=== PATIENT | female | born 1960 | race Caucasian/White ===

== ENCOUNTER 2016-06-07 11:12 | Inpatient (IN) | payer OTHER ==
[2016-06-06] MEDS: CLONAZEPAM 0.5 MG TABLET PO PRN (22:35)
[2016-06-07] MEDS ORDERED: ALBUTEROL/IPRATROPIUM 2.5/0.5 MG 3 ML/EACH DOSE ONE (11:53)
[2016-06-07] MEDS ORDERED: FENTANYL 100 MCG/2 ML VIAL ONE (11:55)
[2016-06-07 12:03] LABS: ABSOLUTE NEUTROPHIL COUNT 10.1 K/mm3 (1.8-7.7); BASO # 0.1 K/mm3 (0.0-0.2); BASO % 0.6 % (0.2-1.0); EOS % 0.1 % (0.9-2.9); HEMATOCRIT 35.9 % (37.0-47.0); HEMOGLOBIN 11.6 gm/l (12.0-16.0); IMM NEUT # 0.3 K/mm3 (0-0.2); IMM NEUT% 2.1 % (0-1); LYMPH # 1.7 (1.0-4.8); LYMPH % 12.7 % (15-45); MEAN CELL VOLUME 94.5 fl (81.0-99.0); MEAN CORPUSCULAR HEMOGLOBIN 30.5 pg (27.0-31.0); MEAN CORPUSCULAR HGB CONC 32.3 g/dl (33.0-37.0); MEAN PLATELET VOLUME 9.5 fl (7.4-10.4); MONO # 1.5 (0.0-0.8); MONO % 10.8 % (4-12); NEUT % 73.7 % (43-75); PLATELET COUNT 278 K/mm3 (130-400); RED CELL DISTRIBUTION WIDTH 12.7 % (11.5-14.5)
[2016-06-07 12:15] LABS: ALB/GLOB RATIO 1.1 (>1.0); ALBUMIN 3.9 gm/dL (3.5-5.7); CALCIUM 9.6 mg/dL (8.6-10.3)
--- NOTE | 2016-06-07 12:28 | RAD ---
ANKLE-LEFT 3 VIEW History: Ankle pain after fall. Comparison: None. Findings: Views of the left ankle were obtained. There is evidence of a displaced oblique fracture of the distal left fibular metaphysis. Numerous ossific fragments are evident medial to the talus likely additional fracture fragments. There is significant disruption of the mortise joint with marked widening of the medial portion. The talar dome contour appears to be within expected. Anterior and posterior calcaneal enthesophytes are identified. Irregularity of the base of the fifth metatarsal may reflect residua of a chronic fracture. Impression: 1. A displaced oblique distal left fibular metaphyseal fracture. 2. Multiple ossific fracture fragments along the medial margin of the talus, likely additional fracture fragments as arising from the medial malleolus or possibly the talus itself. 3. Marked widening of the medial portion of the mortise joint. 4. Irregularity of the base of the fifth metatarsal which may reflect healing at the site of a remote fifth metatarsal fracture. 5. Anterior and posterior calcaneal spurs.
--- NOTE | 2016-06-07 12:29 | RAD ---
KNEE- RIGHT 4 OR MORE VIEWS HISTORY: Knee pain. COMPARISONS: None. FINDINGS: Multiple views of the right knee were performed demonstrating grossly intact osseous structures. There is beaking of the tibial spines with patellofemoral and medial compartment joint space loss with associated osteophyte formation. No lytic or blastic lesions are seen. No evidence of a significant knee joint effusion is identified. IMPRESSION: 1. No definitive fracture visualized. 2. Tricompartmental osteoarthritic changes with patellofemoral and medial compartment joint space loss.
--- NOTE | 2016-06-07 12:30 | RAD ---
CHEST-AP BEDSIDE HISTORY: Dyspnea. COMPARISONS: None. FINDINGS: A single AP view of the chest was performed demonstrating normal-appearing soft tissue and bony structures. The heart size is normal for technique. No gross infiltrate, effusion or pneumothorax is seen. The hilar and mediastinal structures are intact. IMPRESSION: 1. No active intrathoracic process.
[2016-06-07] MEDS ORDERED: CEFTRIAXONE 1 GRAM DUPLEX 50 ML IV ONE (14:07)
[2016-06-07] MEDS ORDERED: AZITHROMYCIN 500 MG VIAL ONE (14:07)
[2016-06-07] MEDS ORDERED: SODIUM CHLORIDE 0.9% 250 ML IV ONE (14:09)
[2016-06-07 15:33] VITALS: BMI 40.6
[2016-06-07] MEDS ORDERED: BISACODYL 10 MG SUP PR PRN (15:37)
[2016-06-07] MEDS ORDERED: BISACODYL 5 MG TABLET.EC PO PRN (15:37)
[2016-06-07] MEDS ORDERED: MAGNESIUM HYDROXIDE 30 ML UDCUP PO PRN (15:37)
[2016-06-07] MEDS ORDERED: SODIUM CHLORIDE 0.9% 100 ML IV PRN (15:37)
[2016-06-07] MEDS ORDERED: BLISTEX LIPSTICK 1 EACH TP PRN (15:37)
[2016-06-07] MEDS ORDERED: MENTHOL/CETYLPYRD 1 EACH LOZENGE PO PRN (15:37)
[2016-06-07] MEDS ORDERED: SODIUM CHLORIDE 0.9% 1,000 ML IV SCH (15:45)
[2016-06-07] MEDS: ENOXAPARIN SODIUM 40 MG/0.4 ML SYRINGE SUB-Q SCH (16:05)
[2016-06-07] MEDS: METHYLPRED SOD SUCCINATE 125 MG VIAL IV SCH ×2 (16:33→23:21)
[2016-06-07] MEDS: ALBUTEROL/IPRATROPIUM 2.5/0.5 MG 3 ML/EACH DOSE NEB SCH ×2 (16:51→20:26)
[2016-06-07] MEDS: METFORMIN HCL 1,000 MG TABLET PO SCH (17:23)
[2016-06-07] MEDS: IBUPROFEN 600 MG TABLET PO PRN (17:23)
[2016-06-07] MEDS: CYCLOBENZAPRINE HCL 10 MG TABLET PO PRN (17:23)
[2016-06-07] MEDS: ACETAMINOPHEN 325 MG TABLET PO PRN (17:24)
[2016-06-07] MEDS: TRAMADOL HCL 50 MG TABLET PO PRN (17:24)
[2016-06-07] MEDS ORDERED: LIDOCAINE 1% (PRES FREE) 30 ML VIAL SUB-Q ONE (17:42)
[2016-06-07] MEDS ORDERED: HYDROMORPHONE HCL 1 MG/ML SYRINGE IV ONE (17:47)
--- NOTE | 2016-06-07 18:51 | RAD ---
ANKLE LIMITED LEFT 1-2 VIEWS HISTORY: Ankle fracture status post cast placement. COMPARISONS: Examination of the same day. FINDINGS: 2 views of the left ankle were obtained within overlying cast material demonstrating the oblique fracture of the distal fibular metaphysis. The alignment is improved from the appearance on prior examination. There appears to be medial tilt of the distal tibial plafond though the widened mortise joint is seen on prior examination is less conspicuous. Detail is however obscured by the overlying cast material. IMPRESSION: 1. An oblique distal fibular metaphyseal fracture with improved alignment when compared to the previous examination. 2. Suggested medial tilt of the distal tibial plafond and though the significant widening of the mortise joint evident on prior examination is less conspicuous. 3. Detail obscured by the overlying cast material.
[2016-06-07] MEDS ORDERED: SEROQUEL 150 MG PO SCH (21:00)
[2016-06-07] MEDS: LEVOTHYROXINE SODIUM 75 MCG TABLET PO SCH (21:48)
[2016-06-07] MEDS: LAMOTRIGINE 100 MG PO SCH (23:17)
[2016-06-07] MEDS: PROPRANOLOL 60 MG PO SCH (23:19)
[2016-06-07] MEDS: FLUOXETINE HCL 20 MG CAPSULE PO SCH (23:20)
[2016-06-07] MEDS: DOCUSATE SODIUM 100 MG CAPSULE PO SCH (23:22)
[2016-06-07 23:23] LABS: ARTERIAL BLOOD GAS pH 7.241 (7.350-7.450)
[2016-06-07] MEDS: ATORVASTATIN CALCIUM 10 MG TABLET PO SCH (23:23)
[2016-06-07 23:24] LABS: ARTERIAL BLOOD GAS BASE EXCESS 1.2 mmol/L (-2.0-2.0); ARTERIAL BLOOD GAS PCO2 71.5 mmHg (35.0-45.0); ARTERIAL BLOOD GAS PO2 54.8 mmHg (80.0-90.0)
[2016-06-07 23:45] LABS: ARTERIAL BLOOD GAS PCO2 56.8 mmHg (35.0-45.0); ARTERIAL BLOOD GAS PO2 69.7 mmHg (80.0-90.0); ARTERIAL BLOOD GAS pH 7.285 (7.350-7.450)
[2016-06-07 23:46] LABS: ARTERIAL BLOOD GAS HCO3 26.4 mmol/L (22.0-28.0)
[2016-06-08] MEDS: METHYLPRED SOD SUCCINATE 125 MG VIAL IV SCH ×4 (03:28→21:17)
[2016-06-08 06:28] LABS: ABSOLUTE NEUTROPHIL COUNT 10.7 K/mm3 (1.8-7.7); BASO # 0.1 K/mm3 (0.0-0.2); BASO % 0.6 % (0.2-1.0); HEMATOCRIT 34.5 % (37.0-47.0); HEMOGLOBIN 10.9 gm/l (12.0-16.0); IMM NEUT # 0.7 K/mm3 (0-0.2); IMM NEUT% 5.1 % (0-1); LYMPH # 1.5 (1.0-4.8); LYMPH % 10.5 % (15-45); MEAN CELL VOLUME 94.3 fl (81.0-99.0); MEAN CORPUSCULAR HEMOGLOBIN 29.8 pg (27.0-31.0); MEAN CORPUSCULAR HGB CONC 31.6 g/dl (33.0-37.0); MEAN PLATELET VOLUME 9.2 fl (7.4-10.4); MONO % 6.8 % (4-12); PLATELET COUNT 276 K/mm3 (130-400); RED CELL DISTRIBUTION WIDTH 12.6 % (11.5-14.5)
[2016-06-08 06:50] LABS: CALCIUM 9.5 mg/dL (8.6-10.3)
[2016-06-08] MEDS: ALBUTEROL/IPRATROPIUM 2.5/0.5 MG 3 ML/EACH DOSE NEB SCH ×4 (08:05→21:04)
[2016-06-08] MEDS: CLONAZEPAM 0.5 MG TABLET PO PRN ×3 (08:44→23:55)
[2016-06-08] MEDS: METFORMIN HCL 1,000 MG TABLET PO SCH ×2 (08:44→21:00)
[2016-06-08] MEDS: DOCUSATE SODIUM 100 MG CAPSULE PO SCH ×2 (08:44→21:12)
--- NOTE | 2016-06-08 08:49 | HP ---
AIME BLAKE [id number] DATE OF ADMISSION: June 07, 2016 CHIEF COMPLAINT: Left ankle pain and shortness of breath. HISTORY OF PRESENT ILLNESS: The patient is a 55-year-old female with a history of asthma and glucose intolerance who presents to the [facility] Emergency Department after a ground level fall occurred at home with left ankle pain, right knee pain and shortness of breath symptoms. She reports that she began having a sore throat last week on Wednesday, followed shortly after by cough and post nasal drip. She began having shortness of breath symptoms last Wednesday which has slowly progressed. She collapsed in her living room yesterday and then this happened again today on the way to urgent care, and she sustained injury to her ankle. She was found to have oxygen saturations as low as 71% on room air in the emergency department. She reports her cough is productive. She has had some wheezing reportedly as well. She complains of sinus congestion. REVIEW OF SYSTEMS: Review of systems is negative for any documented fever. As I mentioned, she does have a sensation of plugged ears, sinus congestion and sore throat. She has had a cough occasionally productive with some wheezing and dyspnea. She has had no orthopnea or lower extremity edema. She has some chronic gastroesophageal reflux symptoms with burning epigastric and chest pain worse at night which have not changed. She has had no appetite. She has had no nausea or vomiting, no diarrhea or constipation. No focal abdominal pain. She has chronic back pain and arthralgias due to osteoarthritis. She denies any headaches or seizures. No urinary complaints. She thinks she might have blacked out this morning when she fell. Review of systems is otherwise negative. PAST MEDICAL HISTORY: 1. Negative for any recent hospitalizations 2. She does have a history of glucose intolerance. 3. Hypothyroidism. 4. Morbid obesity. 5. Chronic asthma with chronic asthmatic bronchitis. 6. Hyperlipidemia. 7. Bipolar disorder. 8. She has had several psychiatric hospitalizations. PAST SURGICAL HISTORY: Significant for: 1. Appendectomy. 2. Tonsillectomy. 3. Bilateral carpal tunnel surgeries. 4. She has had a previous rhinoplasty. 5. Open reduction internal fixation of a right middle finger. ALLERGIES: NO KNOWN DRUG ALLERGIES. CURRENT MEDICATIONS: Prescribed by Aiden and Rupesh. I am awaiting a list from them. Preliminary medication list includes: 1. Vistaril 25 mg every six hours as needed for anxiety. 2. Levothyroxine 75 mcg orally daily. 3. Flexeril 10 mg up to three times daily as needed for back pain. 4. Propranolol 20 mg daily. 5. Metformin 1000 mg twice daily. 6. Seroquel 800 mg at bedtime. 7. Prozac 40 mg at bedtime. 8. Albuterol metered dose inhaler as needed. 9. The list is incomplete and has not been confirmed. FAMILY HISTORY: Significant for a mother who had cervical cancer and father who had colon cancer and coronary artery disease. She has had several aunts who have had diabetes. 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 She is a former smoker of about 50 pack-years and quit in 2010. She rarely drinks alcohol. She is and has no children. Her primary care provider is Dr. Narayan Isaacs. PHYSICAL EXAMINATION: VITAL SIGNS: Temperature is 98.7, pulse 81, blood pressure 115/66, respirations 20, oxygen saturation currently 95% on five liters by nasal cannula. Body mass index is 40.7 with a weight of 114 kilograms. GENERAL: This is an obese female in no acute distress. HEENT: Shows sinus congestion with some yellow drainage. Tympanic membranes are clear bilaterally. Oropharynx shows moist, pink oral mucosa. NECK: Is supple without lymphadenopathy or thyromegaly. CHEST: Lungs reveal diminished breath sounds throughout both lung church with decreased air flow. CARDIOVASCULAR: Exam reveals a regular rate and rhythm without a murmur. ABDOMEN: Obese, soft, nontender, nondistended with positive bowel sounds. EXTREMITIES: Show no peripheral angiography. Left leg is placed in a posterior leg splint. Capillary refill of the toes is less than 2 seconds. Sensation appears to be intact. NEUROLOGIC: Exam is nonfocal. DIAGNOSTIC IMAGING STUDIES: 1. X-ray of the left ankle which shows a displaced, oblique, distal left fibular metaphyseal fracture. Also some ossific fracture fragments along the medial margin of the talus either arising from the talus or the medial malleolus. Marked widening of the medial portion of the mortise joint is noted and there is some irregularity at the base of the 5th metatarsal which may reflect an old fracture. 2. Chest x-ray was felt to be unremarkable. 3. Right knee x-ray there were some osteoarthritic changes seen. LABORATORY STUDIES: Consisted of a CBC with a white count elevated at 13.6, hemoglobin 11.6 and a platelet count of 278,000. Differential shows 73% neutrophils, 12% lymphocytes. Chemistry profile shows sodium 133, potassium 4.2, chloride 96, carbon dioxide 29, BUN 12, creatinine 1.2, glucose 148, total bilirubin was 0.7, AST was elevated at 83, ALT was elevated at 143. Alkaline phosphatase was elevated at 339. Troponin I was 0.02. B-type natriuretic peptide was 218. Lipase was 13. ASSESSMENT: 1. Patient has acute hypoxic respiratory failure suspect this is an asthma exacerbation. We will get peak flow measurements to better document this. She has suspected pneumonia as well and has been started on Rocephin and Zithromax. 2. She has a history of glucose intolerance with complications. 3. Her care is complicated by morbid obesity. 4. She has chronic hypothyroidism. 5. She also has a left ankle fracture which may require surgical treatment. 6. History of bipolar disorder on multiple medications. PLAN: 1. Plan is for admission to the medical/surgical unit. 2. Orthopedic consultation with Dr. Gonzalez has already been performed. 3. She will be treated with Rocephin, Zithromax, and albuterol as needed. 4. I am going to go ahead and add solumedrol as well to her regimen because I suspect asthma may be playing a role. 5. She also may have some underlying sinusitis which could be triggering her asthma. 6. She will resume her usual psychiatric medications once these can be confirmed. If her Seroquel dose is indeed that high, I am going to go ahead and get a 12 lead electrocardiogram just to establish that she has no QT prolongation. 7. Venous thromboembolism risk is moderate. Lovenox has been prescribed for prophylaxis. 8. Cultures of the blood were not obtained prior to treatment. 9. Further treatment and recommendations will depend on her hospital course. cc: Narayan Isaacs M.D. [facility] in [place]
[2016-06-08] MEDS: ETODOLAC 200 MG PO SCH ×3 (10:26→17:44)
[2016-06-08] MEDS ORDERED: INSULIN ASPART (DOSE) 100 UNITS/1 ML SUB-Q PRN (11:37)
--- NOTE | 2016-06-08 11:39 | PDOC43 ---
- Subjective Chief Complaint: shortness of breath and left ankle pain Subjective: Reports Pain Tolerable, Reports Tolerating Diet Well, Reports Shortness of Breath (improving), Reports Other (patient had episode of hypercapneid resp failure yesterday transported to [facility] and improved with Bipap) - Objective Vital Signs Temperature 98.1 F 06/08/16 10:32 Pulse Rate 82 06/08/16 10:32 Respiratory Rate 23 06/08/16 10:45 Blood Pressure 166/66 06/08/16 10:32 O2 Saturation by Pulse Oximetry 91 06/08/16 10:32 Oxygen Delivery Method Nasal Cannula Oxygen Flow Rate 2 Intake and Output 06/07/16 06/08/16 06/09/16 06:59 06:59 06:59 Intake Total 700 1036 Output Total 701 725 Balance -1 311 General: Alert, Oriented x3, Cooperative, Mild Distress HEENT: Mucous membr. moist/pink Lungs: Other (diminished throughout) Cardiovascular: Regular Rate and Rhythm Abdomen: Soft, Normal Bowel Sounds, Non-Distended, No Tenderness Extremities: No Edema Laboratory 06/08/16 06:15 06/08/16 06:15 06/08/16 06/07/16 06/07/16 06:15 23:35 21:35 RBC 3.66 L MCHC 31.6 L pCO2 56.8 H 71.5 H* pO2 69.7 L 54.8 L ABG pH 7.285 L 7.241 L ABG HCO3 30.0 H ABG O2 Saturation 93.2 L 85.3 L Estimated GFR 57 L POC Capillary Glucose % Immature Granulocyt 5.1 H 06/07/16 21:34 RBC MCHC pCO2 pO2 ABG pH ABG HCO3 ABG O2 Saturation Estimated GFR POC Capillary Glucose 166 H % Immature Granulocyt Current Medications: Current meds reviewed in EMR. - Problems: Assessment/Plan (1) Asthma dependent on systemic steroids with acute exacerbation Status: AcuteAssessment/Plan: with peak flow readings under 150, suspect either acute bacterial bronchitis versus acute bacterial sinusitis is triggering the exacerbation, improving on solu-medrol, rocephin and zithromax - repeat CXR in am, switch to PO prednisone in am (2) Respiratory failure with hypoxia and hypercapnia Qualifiers: Chronicity: acute Qualifier Code: (J96.01) Acute respiratory failure with hypoxia Status: AcuteAssessment/Plan: H/O suspected chronic sleep apnea with chronic resp failure, would likely benefit from outpatient sleep study and care home CPAP, responded well to bipap overnight, - will keep in IMCU for bipap tonight PRN (3) Glucose intolerance (impaired glucose tolerance) Status: AcuteAssessment/Plan: mild hyperglycemia, likely due to steroids - cont metformin and novolog (4) Morbid obesity with BMI of 40.0-44.9, adult Status: AcuteAssessment/Plan: complicates care (5) Bipolar 2 disorder Status: AcuteAssessment/Plan: stable on usual meds (6) Ankle fracture, left Qualifiers: Encounter type: initial encounter Fracture type: closed Qualifier Code: (S82.892A) Other fracture of left lower leg, initial encounter for closed fracture Status: AcuteAssessment/Plan: reduced by Dr Gonzalez, in cast - needs outpatient follow up and PT/OT (7) Hypothyroidism (acquired) Status: AcuteAssessment/Plan: on chronic replacement VTE Prophylaxis: [facility] measures Disposition: home in 1-3 days as weaned off oxygen
[2016-06-08] MEDS: CEFTRIAXONE 1 GRAM DUPLEX 1 G in Premix (D5W) 50 ml 1 EACH IV SCH (14:55)
[2016-06-08] MEDS ORDERED: PUMP TUBING ONE (14:56)
[2016-06-08] MEDS: ENOXAPARIN SODIUM 40 MG/0.4 ML SYRINGE SUB-Q SCH (15:04)
[2016-06-08] MEDS: AZITHROMYCIN 500 MG in SODIUM CHLORIDE 0.9% 250 ML IV SCH (16:05)
[2016-06-08] MEDS ORDERED: QUETIAPINE FUMARATE 25 MG TABLET PO ONE (17:30)
[2016-06-08] MEDS ORDERED: QUETIAPINE FUMARATE 50 MG TABLET PO ONE (17:30)
[2016-06-08] MEDS ORDERED: EtCO2 Monitoring Set ONE (18:50)
[2016-06-08] MEDS: FLUOXETINE HCL 20 MG CAPSULE PO SCH (21:10)
[2016-06-08] MEDS: LEVOTHYROXINE SODIUM 75 MCG TABLET PO SCH (21:11)
[2016-06-08] MEDS: PROPRANOLOL 60 MG PO SCH (21:11)
[2016-06-08] MEDS: QUETIAPINE FUMARATE 400 MG PO SCH (21:12)
[2016-06-08] MEDS: LAMOTRIGINE 100 MG PO SCH (21:13)
[2016-06-08] MEDS: ATORVASTATIN CALCIUM 10 MG TABLET PO SCH (21:15)
[2016-06-09] MEDS: METHYLPRED SOD SUCCINATE 125 MG VIAL IV SCH (03:42)
[2016-06-09 07:01] LABS: ABSOLUTE NEUTROPHIL COUNT 12.8 K/mm3 (1.8-7.7); BASO % 0.1 % (0.2-1.0); HEMATOCRIT 34.3 % (37.0-47.0); IMM NEUT # 1.8 K/mm3 (0-0.2); LYMPH # 1.8 (1.0-4.8); LYMPH % 10.4 % (15-45); MEAN CELL VOLUME 94.2 fl (81.0-99.0); MEAN CORPUSCULAR HEMOGLOBIN 30.2 pg (27.0-31.0); MEAN CORPUSCULAR HGB CONC 32.1 g/dl (33.0-37.0); MONO # 1.3 (0.0-0.8); MONO % 7.1 % (4-12); NEUT % 72.4 % (43-75); PLATELET COUNT 299 K/mm3 (130-400); RED CELL DISTRIBUTION WIDTH 12.4 % (11.5-14.5)
[2016-06-09 07:36] LABS: ALB/GLOB RATIO 1.1 (>1.0); ALBUMIN 3.7 gm/dL (3.5-5.7); CALCIUM 9.5 mg/dL (8.6-10.3)
[2016-06-09 07:42] LABS: BAND 5 % (0-10); BASOPHIL 0 % (0-1); EOSINOPHIL 0 % (1-3); LYMPHOCYTE 14 % (15-45); MONOCYTE 17 % (4-12); NEUTROPHILS 64 % (43-75); PLATELET ESTIMATE NORMAL (NORMAL); TOTAL CELLS COUNTED 100
--- NOTE | 2016-06-09 07:51 | RAD ---
EXAMINATION : CHEST-AP BEDSIDE HISTORY: Low O2 saturation. COMPARISONS: Prior exam dated 06/07/2016. FINDINGS: The cardiomediastinal silhouette is within normal limits. There is mild bibasilar atelectasis. Linear basilar opacities are noted and have developed in the interim. No gross effusion is identified. The osseous structures are within normal limits. IMPRESSION: Low lung volumes with mild bibasilar atelectasis. No acute consolidation or effusion is identified.
[2016-06-09] MEDS: ALBUTEROL/IPRATROPIUM 2.5/0.5 MG 3 ML/EACH DOSE NEB SCH ×4 (08:22→20:45)
[2016-06-09] MEDS: METFORMIN HCL 1,000 MG TABLET PO SCH ×2 (09:09→17:29)
[2016-06-09] MEDS: PREDNISONE 20 MG TABLET PO SCH (09:09)
[2016-06-09] MEDS: DOCUSATE SODIUM 100 MG CAPSULE PO SCH ×2 (09:11→20:04)
[2016-06-09] MEDS: ETODOLAC 200 MG PO SCH ×2 (09:12→17:30)
[2016-06-09] MEDS: TRAMADOL HCL 50 MG TABLET PO PRN ×2 (09:23→13:56)
--- NOTE | 2016-06-09 12:05 | PDOC43 ---
- Subjective Chief Complaint: shortness of breath and left ankle pain Subjective: Reports Tolerating Diet Well, Reports Adequate Oral Intake, Reports Shortness of Breath (especially with exertion), Denies Chest Pain, Denies Fever - Objective Vital Signs Temperature 98.2 F 06/09/16 08:00 Pulse Rate 70 06/09/16 08:00 Respiratory Rate 20 06/09/16 08:00 Blood Pressure 127/96 06/09/16 08:00 O2 Saturation by Pulse Oximetry 94 06/09/16 08:00 Oxygen Delivery Method Nasal Cannula Oxygen Flow Rate 2 Intake and Output 06/08/16 06/09/16 06/10/16 06:59 06:59 06:59 Intake Total 700 2451 Output Total 701 3801 600 Balance -1 -1350 -600 General: Alert, Oriented x3, Cooperative, No Acute Distress HEENT: Mucous membr. moist/pink Lungs: Other (diminished throughotu ramona. in bases) Cardiovascular: Regular Rate and Rhythm Abdomen: Soft, Normal Bowel Sounds, Non-Distended, No Tenderness Extremities: Edema, Normal Cap Refill, Other (short leg cast on left lower leg) Skin: Warm, Dry, Intact Laboratory 06/09/16 06:50 06/09/16 06:50 06/09/16 06/09/16 06/08/16 08:40 06:50 20:33 RBC 3.64 L MCHC 32.1 L Estimated GFR 57 L POC Capillary Glucose 143 H 169 H AST 129 H ALT 243 H Alkaline Phosphatase 453 H % Immature Granulocyt 10.0 H Current Medications: Current meds reviewed in EMR. - Problems: Assessment/Plan (1) Asthma dependent on systemic steroids with acute exacerbation Status: AcuteAssessment/Plan: with initial peak flow readings under 150, initially concerned about and treated for pneumonia on admit but now suspect either acute bacterial bronchitis versus acute bacterial sinusitis is triggering the exacerbation, repeat CXR is showing some atalectasis, improving on solu-medrol, rocephin and zithromax, peak flow improving and may be falsely decreased due to poor technique - switching to PO prednisone today (2) Respiratory failure with hypoxia and hypercapnia Qualifiers: Chronicity: acute Qualifier Code: (J96.01) Acute respiratory failure with hypoxia Status: AcuteAssessment/Plan: H/O suspected chronic sleep apnea with chronic resp. 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 (6) Ankle fracture, left Qualifiers: Encounter type: initial encounter Fracture type: closed Qualifier Code: (S82.892A) Other fracture of left lower leg, initial encounter for closed fracture Status: AcuteAssessment/Plan: reduced by Dr Gonzalez, in cast - needs outpatient follow up next week (7) Hypothyroidism (acquired) Status: AcuteAssessment/Plan: on chronic replacement (8) Elevated transaminase measurement Status: AcuteAssessment/Plan: suspect may be due chronic fatty liver disease - defer to outpatient provider VTE [facility] Disposition: home in 1-3 days as weaned off oxygen
[2016-06-09] MEDS: IBUPROFEN 600 MG TABLET PO PRN ×2 (13:56→20:04)
[2016-06-09] MEDS: CLONAZEPAM 0.5 MG TABLET PO PRN (13:56)
[2016-06-09] MEDS: AZITHROMYCIN 500 MG in SODIUM CHLORIDE 0.9% 250 ML IV SCH (14:30)
[2016-06-09] MEDS: CEFTRIAXONE 1 GRAM DUPLEX 1 G in Premix (D5W) 50 ml 1 EACH IV SCH (14:30)
[2016-06-09] MEDS: ENOXAPARIN SODIUM 40 MG/0.4 ML SYRINGE SUB-Q SCH (15:03)
[2016-06-09] MEDS: FLUOXETINE HCL 20 MG CAPSULE PO SCH (20:04)
[2016-06-09] MEDS: ATORVASTATIN CALCIUM 10 MG TABLET PO SCH (20:04)
[2016-06-09] MEDS: PROPRANOLOL 60 MG PO SCH (20:05)
[2016-06-09] MEDS: LAMOTRIGINE 100 MG PO SCH (20:06)
[2016-06-09] MEDS: QUETIAPINE FUMARATE 400 MG PO SCH (20:06)
[2016-06-09] MEDS: LEVOTHYROXINE SODIUM 75 MCG TABLET PO SCH (20:06)
[2016-06-10] MEDS: CLONAZEPAM 0.5 MG TABLET PO PRN ×2 (00:05→22:31)
[2016-06-10] MEDS: TRAMADOL HCL 50 MG TABLET PO PRN ×4 (00:05→21:48)
[2016-06-10] MEDS: ALBUTEROL/IPRATROPIUM 2.5/0.5 MG 3 ML/EACH DOSE NEB SCH ×4 (09:40→20:28)
--- NOTE | 2016-06-10 10:39 | PDOC43 ---
- Subjective Chief Complaint: shortness of breath and left ankle pain Subjective: Reports Shortness of Breath (improving slowly), Denies Chest Pain, Denies Fever - Objective Vital Signs Temperature 98.5 F 06/09/16 23:13 Pulse Rate 66 06/10/16 05:54 Respiratory Rate 18 06/10/16 03:28 Blood Pressure 120/71 06/10/16 04:20 O2 Saturation by Pulse Oximetry 93 06/10/16 05:54 Oxygen Delivery Method Bi-PAP Oxygen Flow Rate 0 Intake and Output 06/09/16 06/10/16 06/11/16 06:59 06:59 06:59 Intake Total 2451 2950 Output Total 3801 2251 Balance -1350 699 General: Alert, Oriented x3, Mild Distress HEENT: Mucous membr. moist/pink Lungs: Diminished at Bases Cardiovascular: Regular Rate and Rhythm Abdomen: Soft, Normal Bowel Sounds, Non-Distended, No Tenderness Extremities: No Edema Laboratory 06/09/16 06:50 06/09/16 06:50 06/09/16 06/09/16 06/09/16 20:19 17:22 08:40 POC Capillary Glucose 135 H 139 H 143 H Current Medications: Current meds reviewed in EMR. - Problems: Assessment/Plan (1) Asthma dependent on systemic steroids with acute exacerbation Status: AcuteAssessment/Plan: with initial peak flow readings under 150, initially concerned about and treated for pneumonia on admit but now suspect either acute bacterial bronchitis versus acute bacterial sinusitis is triggering the exacerbation, repeat CXR is showing some atalectasis, improving on steroids, rocephin and zithromax, peak flow improving and may be falsely decreased due to poor technique - Cont. PO prednisone (2) Respiratory failure with hypoxia and hypercapnia Qualifiers: Chronicity: acute Qualifier Code: (J96.01) Acute respiratory failure with hypoxia Status: AcuteAssessment/Plan: H/O suspected chronic sleep apnea with chronic resp. 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 (6) Ankle fracture, left Qualifiers: Encounter type: initial encounter Fracture type: closed Qualifier Code: (S82.892A) Other fracture of left lower leg, initial encounter for closed fracture Status: AcuteAssessment/Plan: reduced by Dr Gonzalez, in cast - needs outpatient follow up next week (7) Hypothyroidism (acquired) Status: AcuteAssessment/Plan: on chronic replacement (8) Elevated transaminase measurement Status: AcuteAssessment/Plan: suspect may be due chronic fatty liver disease - defer to outpatient provider VTE Prophylaxis: [facility] measures Disposition: home in am if able to stay off oxygen and bipap overnight, reluctant to prescribe home oxygen due to H/O CO2 retention, transfer to /
[2016-06-10] MEDS: METFORMIN HCL 1,000 MG TABLET PO SCH ×2 (10:47→16:29)
[2016-06-10] MEDS: PREDNISONE 20 MG TABLET PO SCH (10:47)
[2016-06-10] MEDS: DOCUSATE SODIUM 100 MG CAPSULE PO SCH ×2 (10:47→21:47)
[2016-06-10] MEDS: ETODOLAC 200 MG PO SCH ×2 (10:47→16:29)
[2016-06-10] MEDS: IBUPROFEN 600 MG TABLET PO PRN (10:47)
[2016-06-10] MEDS ORDERED: SODIUM CHLORIDE 0.9% 1,000 ML ONE (11:08)
[2016-06-10] MEDS: CEFTRIAXONE 1 GRAM DUPLEX 1 G in Premix (D5W) 50 ml 1 EACH IV SCH (14:24)
[2016-06-10] MEDS: HYDROXYZINE PAMOATE 25 MG CAPSULE PO PRN ×2 (16:29→22:30)
[2016-06-10] MEDS: ENOXAPARIN SODIUM 40 MG/0.4 ML SYRINGE SUB-Q SCH (16:30)
[2016-06-10] MEDS: PROPRANOLOL 60 MG PO SCH (20:00)
[2016-06-10] MEDS: LEVOTHYROXINE SODIUM 75 MCG TABLET PO SCH (20:00)
[2016-06-10] MEDS: QUETIAPINE FUMARATE 400 MG PO SCH (21:09)
[2016-06-10] MEDS: FLUOXETINE HCL 20 MG CAPSULE PO SCH (21:10)
[2016-06-10] MEDS: LAMOTRIGINE 100 MG PO SCH (21:12)
[2016-06-10] MEDS: ATORVASTATIN CALCIUM 10 MG TABLET PO SCH (21:48)
[2016-06-10] MEDS: ALBUTEROL NEB 2.5 MG/3 ML VIAL.NEB NEB PRN (22:25)
[2016-06-10] MEDS: CYCLOBENZAPRINE HCL 10 MG TABLET PO PRN (22:30)
[2016-06-10] MEDS ORDERED: FAMOTIDINE 20 MG TABLET PO PRN (23:31)
[2016-06-10] MEDS ORDERED: CALCIUM CARBONATE 500 MG TAB.CHEW PO PRN (23:31)
[2016-06-11] MEDS: TRAMADOL HCL 50 MG TABLET PO PRN ×3 (05:48→23:39)
[2016-06-11] MEDS: IBUPROFEN 600 MG TABLET PO PRN ×3 (07:18→20:40)
[2016-06-11] MEDS: CYCLOBENZAPRINE HCL 10 MG TABLET PO PRN ×3 (07:20→20:48)
[2016-06-11] MEDS: ALBUTEROL/IPRATROPIUM 2.5/0.5 MG 3 ML/EACH DOSE NEB SCH ×4 (08:20→20:40)
[2016-06-11] MEDS: METFORMIN HCL 1,000 MG TABLET PO SCH ×2 (09:02→16:41)
[2016-06-11] MEDS: ETODOLAC 200 MG PO SCH ×2 (09:02→16:41)
[2016-06-11] MEDS: DOCUSATE SODIUM 100 MG CAPSULE PO SCH ×2 (09:02→20:41)
[2016-06-11] MEDS: PREDNISONE 20 MG TABLET PO SCH (09:02)
[2016-06-11 11:19] LABS: ABSOLUTE NEUTROPHIL COUNT 11.2 K/mm3 (1.8-7.7); BASO # 0.2 K/mm3 (0.0-0.2); BASO % 0.8 % (0.2-1.0); EOS % 0.2 % (0.9-2.9); HEMATOCRIT 36.4 % (37.0-47.0); HEMOGLOBIN 11.8 gm/l (12.0-16.0); IMM NEUT # 4.4 K/mm3 (0-0.2); IMM NEUT% 20.1 % (0-1); LYMPH # 4.4 (1.0-4.8); LYMPH % 20.2 % (15-45); MEAN CELL VOLUME 92.6 fl (81.0-99.0); MEAN CORPUSCULAR HGB CONC 32.4 g/dl (33.0-37.0); MEAN PLATELET VOLUME 8.7 fl (7.4-10.4); MONO # 1.6 (0.0-0.8); MONO % 7.3 % (4-12); NEUT % 51.4 % (43-75); PLATELET COUNT 313 K/mm3 (130-400); RED CELL DISTRIBUTION WIDTH 12.5 % (11.5-14.5)
[2016-06-11 11:37] LABS: ALB/GLOB RATIO 1.1 (>1.0); ALBUMIN 3.4 gm/dL (3.5-5.7); CALCIUM 9.5 mg/dL (8.6-10.3)
[2016-06-11 11:49] LABS: BAND 4 % (0-10); BASOPHIL 0 % (0-1); EOSINOPHIL 0 % (1-3); LYMPHOCYTE 24 % (15-45); MONOCYTE 14 % (4-12); NEUTROPHILS 58 % (43-75); NUCLEATED RED BLOOD CELL 1 /100 WBC; PLATELET ESTIMATE NORMAL (NORMAL); TOTAL CELLS COUNTED 100
--- NOTE | 2016-06-11 12:05 | PDOC43 ---
- Subjective Chief Complaint: shortness of breath and left ankle pain Dyspnea is improved, main c/o today is Right knee pain. - Objective Vital Signs Temperature 98.0 F 06/11/16 07:55 Pulse Rate 69 06/11/16 08:21 Respiratory Rate 18 06/11/16 08:21 Blood Pressure 123/80 06/11/16 07:55 O2 Saturation by Pulse Oximetry 93 06/11/16 08:21 Oxygen Delivery Method Room Air Oxygen Flow Rate 0 Intake and Output 06/10/16 06/11/16 06/12/16 06:59 06:59 06:59 Intake Total 2950 1650 Output Total 2251 2350 Balance 699 -700 General: Alert, Oriented x3, Cooperative, No Acute Distress HEENT: Mucous membr. moist/pink Lungs: Clear to Auscultation Bilaterally Cardiovascular: Regular Rate and Rhythm Abdomen: Soft, Normal Bowel Sounds, No Tenderness, No Masses Extremities: Normal Cap Refill, Normal Pulses, Other (splint on left calf/ankle) , No Edema Skin: Normal Color Neurological: Normal Speech Psych/Mental Status: Normal Mood Laboratory 06/11/16 11:07 06/11/16 11:07 06/11/16 06/11/16 06/10/16 11:08 11:07 21:30 RBC 3.93 L MCHC 32.4 L Estimated GFR 51 L POC Capillary Glucose 127 H 135 H ALT 137 H Alkaline Phosphatase 304 H Albumin 3.4 L % Immature Granulocyt 20.1 H 06/10/16 16:38 RBC MCHC Estimated GFR POC Capillary Glucose 127 H ALT Alkaline Phosphatase Albumin % Immature Granulocyt Current Medications: Current meds reviewed in EMR. - Problems: Assessment/Plan (1) Ankle fracture, left Qualifiers: Encounter type: initial encounter Fracture type: closed Qualifier Code: (S82.892A) Other fracture of left lower leg, initial encounter for closed fracture Status: AcuteAssessment/Plan: reduced by Dr Gonzalez, in cast - needs outpatient follow up next week (2) Asthma dependent on systemic steroids with acute exacerbation Status: AcuteAssessment/Plan: with initial peak flow readings under 150, initially concerned about and treated for pneumonia on admit but now suspect either acute bacterial bronchitis versus acute bacterial sinusitis is triggering the exacerbation, repeat CXR is showing some atalectasis, improving on steroids, rocephin and zithromax, peak flow improving and may be falsely decreased due to poor technique - Cont. PO prednisone Prednisone causing leukocytosis, but increased WBC does not indicate increasing infection. 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 (4) Elevated transaminase measurement Status: ChronicAssessment/Plan: due chronic fatty liver disease - defer to outpatient provider (5) Glucose intolerance (impaired glucose tolerance) Status: ChronicAssessment/Plan: mild hyperglycemia, likely due to steroids - cont metformin and novolog (6) Hypothyroidism (acquired) Status: ChronicAssessment/Plan: on chronic replacement (7) Morbid obesity with BMI of 40.0-44.9, adult Status: ChronicAssessment/Plan: complicates care for fracture, osteoarthritis, asthma, sleep apnea, fatty liver and glucose intolerance (8) Respiratory failure with hypoxia and hypercapnia Qualifiers: Chronicity: acute Qualifier Code: (J96.01) Acute respiratory failure with hypoxia Status: ChronicAssessment/Plan: H/O suspected chronic sleep apnea with chronic resp. failure, would likely benefit from outpatient sleep study and watermelon inspector CPAP, responded well to bipap initially but no longer needing BiPAP. (9) Anemia Status: ChronicAssessment/Plan: mild, chronic, stable (10) Hyponatremia Status: ChronicAssessment/Plan: mild, chronic, stable (11) CKD (chronic kidney disease) stage 3, GFR 30-59 ml/min Status: ChronicAssessment/Plan: stable VTE Prophylaxis: [facility] measures Disposition: Plan SNF on 06/12.
[2016-06-11] MEDS ORDERED: PUMP TUBING ONE (13:49)
[2016-06-11] MEDS: CEFTRIAXONE 1 GRAM DUPLEX 1 G in Premix (D5W) 50 ml 1 EACH IV SCH (13:55)
[2016-06-11] MEDS: ENOXAPARIN SODIUM 40 MG/0.4 ML SYRINGE SUB-Q SCH (16:41)
[2016-06-11] MEDS: LEVOTHYROXINE SODIUM 75 MCG TABLET PO SCH (20:39)
[2016-06-11] MEDS: FLUOXETINE HCL 20 MG CAPSULE PO SCH (20:40)
[2016-06-11] MEDS: CLONAZEPAM 0.5 MG TABLET PO PRN ×2 (20:40→20:49)
[2016-06-11] MEDS: ATORVASTATIN CALCIUM 10 MG TABLET PO SCH (20:43)
[2016-06-11] MEDS: PROPRANOLOL 60 MG PO SCH (20:46)
[2016-06-11] MEDS: QUETIAPINE FUMARATE 400 MG PO SCH (20:47)
[2016-06-11] MEDS: LAMOTRIGINE 100 MG PO SCH (21:00)
[2016-06-11] MEDS: HYDROXYZINE PAMOATE 25 MG CAPSULE PO PRN (23:40)
[2016-06-12] MEDS: ALBUTEROL NEB 2.5 MG/3 ML VIAL.NEB NEB PRN (01:21)
[2016-06-12] MEDS: ACETAMINOPHEN 325 MG TABLET PO PRN (03:35)
[2016-06-12] MEDS: IBUPROFEN 600 MG TABLET PO PRN (03:35)
[2016-06-12] MEDS: TRAMADOL HCL 50 MG TABLET PO PRN (07:32)
[2016-06-12 08:06] VITALS: BP 125/80
[2016-06-12] MEDS: ALBUTEROL/IPRATROPIUM 2.5/0.5 MG 3 ML/EACH DOSE NEB SCH (08:43)
[2016-06-12] MEDS: PREDNISONE 20 MG TABLET PO SCH (09:11)
[2016-06-12] MEDS: DOCUSATE SODIUM 100 MG CAPSULE PO SCH (09:11)
[2016-06-12] MEDS: ETODOLAC 200 MG PO SCH (09:12)
[2016-06-12] MEDS: METFORMIN HCL 1,000 MG TABLET PO SCH (09:12)
--- NOTE | 2016-06-12 10:35 | DS ---
Fuentes Sofia [id number] : 1960 DATE OF ADMISSION: 06/07/2016 DATE OF DISCHARGE: 06/12/2016 ADMIT DIAGNOSES: 1. Acute hypoxemic respiratory failure. 2. Asthma exacerbation. 3. Morbid obesity. 4. Hypothyroidism. 5. Acute left ankle fracture. 6. Bipolar affective disorder. DISCHARGE DIAGNOSES: 1. Acute hypoxemic and hypercapnic respiratory failure secondary to asthma exacerbation. 2. Chronic persistent asthma with acute exacerbation. 3. Presumed bacterial bronchitis. 4. Acute left ankle fracture. 5. Bipolar II disorder, stable. 6. Chronic kidney disease stage III, stable. 7. Chronic elevated transaminases presumed due to fatty liver changes. 8. Glucose intolerance. 9. Morbid obesity with body mass index of 41.7. 10. Chronic mild anemia related to chronic kidney disease. 11. Chronic mild hyponatremia likely related to psychiatric medications. 12. Hypothyroidism on replacement, stable. 13. Benign essential hypertension. 14. Dyslipidemia. PROCEDURES: None. CONSULTATIONS: 1. Dr. Gonzalez for the left ankle fracture. 2. Physical and occupational therapy. intermediate rehabilitation recommended. HISTORY ON ADMISSION: Ms. Ryan is a 55-year-old followed by Dr. Isaacs. She presented to [facility] Emergency Department after a ground level fall with acute left ankle pain. She gave a history of respiratory infection symptoms for a week before her fall and when paramedics arrived on the scene they noted an oxygen saturation of 71% and placed her on oxygen. HOSPITAL COURSE: The patient was admitted to [facility]. She was given supplemental oxygen and although her chest x-ray was clear not indicating pneumonia she was treated with ceftriaxone and Azithromycin for possible bacterial bronchitis. She had orthopedic consultation and a splint placed on her left lower extremity. On the first hospital night, however, she developed hypercapnic respiratory failure due to excessive oxygen supplementation and required BiPAP support. She was given steroids and a prednisone taper for asthma exacerbation and weaned off of oxygen and had no further difficulty with hypercapnic or hypoxemic respiratory failure. She has remained nonweightbearing on the left lower extremity and initially hoped to go home, but has not made significant mobility progress with therapies and residential rehabilitation was recommended and on June 12 she will be discharged to [facility]. DISCHARGE EXAMINATION: VITAL SIGNS: Temperature 98.0 degrees Fahrenheit, pulse 68, blood pressure 125/80, respiratory rate 18, oxygen saturation 94% on room air. CHEST: Clear to auscultation. HEART: Regular. No murmur. ABDOMEN: Soft, nontender, normal bowel tones. EXTREMITIES: Right ankle no edema. Good dorsalis pedis pulse. Left calf and ankle in a posterior splint. Distal toes show brisk capillary refill and are neurovascularly intact. DISCHARGE PLAN: 1. Discharge and transport to [facility]. 2. Follow up scheduled with Dr. Isaacs June 15 at 3:[address] Gonzalez June 16 at 2:30 p.m. DIET: Regular, regular texture. ACTIVITY: She is to have physical and occupational therapy evaluation and treatment. She is to remain nonweightbearing on the left foot. DISCHARGE MEDICATIONS: 1. Prednisone taper 40 mg daily for four days, 30 mg daily for four days, 20 mg daily for four days, 10 mg daily for four days, then stop. 2. Hydroxyzine 25 mg by mouth every 6 hours as needed. 3. Levothyroxine 75 mcg by mouth daily. 4. Cyclobenzaprine 10 mg by mouth three times daily as needed. 5. Metformin 1000 mg by mouth twice daily. 6. Fluoxetine 40 mg by mouth nightly. 7. Etodolac 400 mg by mouth twice daily with meals. 8. Albuterol HFA 2 puffs every four hours as needed. 9. Quetiapine 800 mg at bedtime. 10. Propranolol extended release 120 mg by mouth each evening. 11. Lamotrigine 300 mg by mouth nightly. 12. Atorvastatin 20 mg by mouth nightly. 13. Clonazepam 0.5 mg by mouth twice daily as needed. 14. Tramadol 50 to 100 mg by mouth three times daily as needed. Greater than 30 minutes was spent in direct patient care and coordination of care on the day of discharge. JOB: [id number] CC: Dr. Narayan Isaacs at [facility] Dr. Gonzalez
--- NOTE | 2016-06-16 11:56 | CONS ---
Fuentes BLAKE : 1960 [id number] ORTHOPEDIC CONSULTATION DATE OF CONSULTATION: June 07, 2016 CHIEF COMPLAINT: Left ankle pain. HISTORY OF PRESENT ILLNESS: This is a 55-year-old female admitted by the hospitalist service for pneumonia who had a fall with left ankle pain and deformity. She was seen in the Emergency Department and fracture of the left ankle was identified. Orthopedics was asked to consult and she was seen on the floor. She complains of isolated left ankle pain as well as some right knee pain and shortness of breath. She denies any dysfunction prior to her fall. She has no other documented extremity complaints at this point. She said that the knee is not really bothering her as much as the left ankle is and that this has improved since she got some pain medication. She rates her pain right now as a 4/10. PAST MEDICAL HISTORY: As reported in the hospitalist H&P. She reports that she has had some previous back pain and joint pains, but nothing that is particularly related to her ankle. PAST SURGICAL HISTORY: As reported in the hospitalist H&P. CURRENT MEDICATIONS: As reported in the hospitalist H&P. ALLERGIES TO MEDICATIONS: As reported in the hospitalist H&P. REVIEW OF SYSTEMS: As per the hospitalist H&P. PHYSICAL EXAM: Patient is a well-developed, well-nourished female in no acute distress. She is awake and alert, and conversant during our conversation. She does have morbid obesity. FOCUSED MUSCULOSKELETAL EXAMINATION OF HER LEFT ANKLE: Shows deformity with lateral prominence. She has got an abrasion over the medial side of the ankle, but no open injuries. She has a warm and well perfused foot with a brisk capillary refill and good sensation. She has crepitance with any motion at the ankle and her motion is limited secondary to pain. She does have palpable DP and PT pulses. She has no other deformity proximally and she has no pain with a proximal tib-fib squeeze. RADIOGRAPHS: A review of x-rays shows a lateral malleolus fracture with lateral subluxation of the talar dome relative to the medial malleolus. There is no evidence of a posterior injury. This is what we consider a SER4 equivalent injury. ASSESSMENT: This is a morbidly obese 55-year-old female admitted for pneumonia with a fall and a left SER4 ankle injury. PLAN: After a discussion with the patient we elected to proceed with a closed reduction and splinting of this ankle in order to protect the chondral surface of the talar dome prior to definitive fixation. This was done on the floor with just normal pain medication. She did not require any local anesthetic or local sedation. Informed consent was obtained and documented prior to the procedure. Please see the associated procedure note for details of the procedure. Job [id number] Cc: [facility]
--- NOTE | 2016-06-16 11:58 | PROCNOTE ---
Fuentes BLAKE : 1960 [id number] ORTHOPEDIC PROCEDURE DATE OF PROCEDURE: June 07, 2016 PREOPERATIVE DIAGNOSIS: Displaced unstable left ankle fracture. POSTOPERATIVE DIAGNOSIS: Displaced unstable ankle fracture. PROCEDURE PERFORMED: A LEFT ANKLE CLOSED REDUCTION AND CASTING. PROVIDER: Vincent Gonzalez M.D. ANIMAL NURSERY WORKER: None. ANESTHESIA: None. SPECIMENS: None. ESTIMATED BLOOD LOSS: None. INTRAVENOUS FLUIDS: None during the procedure. TOURNIQUET: No tourniquet was utilized. DRAINS: None. INDICATIONS: A 55-year-old female with displaced left ankle fracture requiring reduction in order to maintain anatomic position. Please see orthopedic H&P for additional details. DESCRIPTION OF THE PROCEDURE: The patient was identified, marked with an indelible marker by the operating surgeon. Informed consent was obtained and reviewed. A stockinette was placed over her left leg and gentle medial and dorsiflexion force was applied. The patient tolerated this without difficulty and her ankle was noted to reduce to an anatomic position. A well padded L&U splint was applied. X-rays were obtained which documented reduced position of the ankle. At this point, the patient was released back to the hospitalist service and was instructed to follow up with us sometime in the next 7 to 10 days for a preoperative evaluation with a plan for an open reduction internal fixation in the next 2 to 3 weeks. Job [id number] Cc: [facility]
== END 2016-06-12 11:35 | DRG 189 ==
LOC: ED 11:12 → MS 14:34 → ICU 21:30 → MS 06-10 15:46
PROVIDERS: ADMIT Family Medicine; ATTEND Family Medicine
DX: J96.01 Acute respiratory failure with hypoxia (principal); J45.901 Unspecified asthma with (acute) exacerbation; Z68.41 Body mass index [BMI] 40.0-44.9, adult; S82.892A Other fracture of left lower leg, initial encounter for closed fracture; W19.XXXA Unspecified fall, initial encounter; E74.39 Other disorders of intestinal carbohydrate absorption; E03.9 Hypothyroidism, unspecified; E66.01 Morbid (severe) obesity due to excess calories; E78.5 Hyperlipidemia, unspecified; F31.9 Bipolar disorder, unspecified; I12.9 Hypertensive chronic kidney disease with stage 1 through stage 4 chronic kidney disease, or unspecified chronic kidney disease; N18.3 Chronic kidney disease, stage 3 (moderate); D63.1 Anemia in chronic kidney disease